=== PATIENT | female | born 1930 | race Caucasian/White ===

== ENCOUNTER 2016-09-13 17:26 | Inpatient (IN) | payer MEDICARE, OTHER ==
[~2016-09-13] VITALS: Ht 165.1 cm; Wt 69.5 kg
[~2016-09-13 17:26] MED LIST: AMIO200T PO; CARV25TA PO; CRES20T PO; FUR20 PO; LEVO88TA4 PO; LISI-571 PO; MAGN400C PO; NITR0.4T SL; WARF5TAB7 PO
--- NOTE | 2016-09-13 20:30 | NUR ---
Admit: Pt direct admit from [facility]; family at bedside. Tele placed, RA, vitals stable, afebrile. Pt placed on Neutropenic precautions. Admit complete, including home medication list which a list was provided by family and confirmed with patient. Patient pleasant and cooperative with care.
[2016-09-13 20:31] VITALS: PULSE 83
[2016-09-13 21:48] VITALS: BP 111/71; PULSE 83; RESP 18; O2SAT 97
--- NOTE | 2016-09-13 22:06 | PCM.HPMED ---
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 She was seen in the ED the day prior, where she was afebrile and was sent home with [facility]. She reports fever, chills, fatigue, and generalized weakness. She reports temperatures measured at home between 100.8 - 101 F. She denies cough, dyspnea, rhinorrhea, sinus congestion or other URI symptoms, N/V/D, chest pain, palpitations,or fainting. She was recently seen at [facility] 2 weeks ago for cardioversion for afib, where she was discovered to have AML; she was admitted for 5 days. At [facility], vitals included temp 98.1, HR 80, RR 14, BP 103/63, and O2 98 on room air. CXR at [facility] showed a density in the right apex, possibility of focal pneumonia, as well as a moderate hiatal hernia. CBC showed WBC 3, Hb 8.6, Hct 25.1, MCV 112.9, Plt 72. Absolute neutrophil count was 1500. CMP showed Na 134, K 4.1, Cl 97, CO2 25, BUN 31, Cr 1.9, glucose 107. Lactic acid was 1.9. LFTs were normal. Troponin I was normal at 0.017. Procalcitonin was 0.31. During her stay at [place], she converted back into afib. She was given Zosyn IV and APAP, blood cultures were drawn, and she was transferred to [facility]. PCP is Dr. Mckinley. Oncologist is Dr. Mayer in [place]. Pt is trying to establish with Dr. Salinas locally but has not yet set an appointment. Review of Systems: complete review of systems conducted and found negative except for the pertinent positives listed above. Allergies Coded Allergies: Sulfa (Sulfonamide Antibiotics) (Verified Allergy, Severe, Rash, 09/13/16) morphine (Verified Allergy, Mild, Nausea, 09/13/16) Home Medications Allopurinol 100 mg daily Amiodarone 200 mg daily Carvedilol 25 mg BID Hydralazine 25 mg q8h Isosorbide mononitrate 30 mg daily Levothyroxine 100 mcg daily Lisinopril 5 mg qhs PRN Magnesium oxide 400 mg daily Torsemide 20 mg BID Warfarin 2.5 mg daily PMH AML - not yet treated Atrial fibrillation s/p cardioversion Coronary artery disease, s/p 2 stents Hypothyroidism Hypertension Surgical History Angioplasty - 2 stents Bladder suspension Hysterectomy Family History Mother: [place] Father: [place] 2 brothers: [place] Social History Hx Alcohol Use: No Hx Substance Use: No Hx Tobacco Use: No Smoking Status: Never Smoker Exam Vital Signs Vital Sign - Last Date Time Temp Pulse Resp B/P Pulse Ox O2 Delivery O2 Flow Rate FiO2 09/13/16 21:48 37.3 83 18 111/71 97 Room Air Exam General: Alert, Oriented X3, Cooperative, No acute distress Head: Normocephalic, atraumatic. External ears normal. Eyes: PERRLA, EOMI. Anicteric sclerae. Mouth: Mouth normal, Mucous membranes moist/pink Neck: Neck supple with full range of motion. Chest& Lungs: Clear to auscultation bilaterally with no crackles, wheezes, or rhonchi. Cardiovascular: Regular rate/rhythm, Normal S1, Normal S2, No murmurs/rubs/ gallops Abdomen: Non-tender, Non-distended, No masses, Normoactive bowel tones, Soft Musculoskeletal: Normal range of motion Extremities: No cyanosis/clubbing/edema bilaterally Neurological: Mild bilateral hand tremor. 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 Neutropenic fever, acute. - Pt presents with fevers and chills in the context of neutropenia (ANC 1500) secondary to newly diagnosed AML. Likely secondary to HCAP - Neutropenic precautions in place - Tylenol PRN fever - Treat underlying HCAP - Consider oncology consult in AM Healthcare associated pneumonia, acute. - CXR showed density in the right apex (reviewed by admitting team). WBC was 3. - Cefepime 2g IV q8h - Linezolid 600 mg PO q12h - Consider Infectious Disease consult in AM - Nasal MRSA screen - Viral PCR ordered - Follow up on blood cultures from [facility], obtain records - Sputum cultures - Urine Legionella and Strep pneumo Acute kidney injury - Cr was 1.9 at [facility] (outside records reviewed). Possibly secondary to sepsis. - Obtain records from PCP for baseline Cr - NS @ 100 ml/hr - Avoid nephrotoxic agents - Monitor BMP Macrocytic anemia, unknown chronicity. - Hb 8.6, Hct 25.1, MCV 112.9. Likely secondary to pancytopenia from AML but will order B12 and folate levels to rule out deficiency. - B12 and folate ordered - Follow CBC Recurrent atrial fibrillation, acute. - Currently rate controlled. 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 Establishing with Dr. Salinas. No treatment yet. CODE STATUS: Pt requests Full Code for now, but states she wants to revisit her Code status in the morning, as she wanted to discuss it with her family. - Bowel regimen as needed - Antiemetic as needed Patient is admitted under inpatient status with expected length of stay greater than 2 midnights due to severity of presenting symptoms, risk of adverse event, and complexity of treatment plan. Resuscitation Status: CPR: Attempt Resuscitation Attending Statement The patient was seen and examined together with house staff on 09/13/2016 and I agree with the history, exam and plan as outlined in the note above. Harvinder Cesar Sep 13, 2016 22:06 Chelsey Mesa DO Sep 14, 2016 05:54
[2016-09-13] MEDS ORDERED: HYDR-3939 PO (22:25)
[2016-09-13] MEDS ORDERED: ISOS30TA4 PO (22:29)
[2016-09-13] MEDS ORDERED: TORS20TA3 PO (22:29)
[2016-09-13] MEDS ORDERED: UBIQ75CA PO (22:29)
[2016-09-13] MEDS ORDERED: ZYL100 PO (22:30)
[2016-09-13] MEDS ORDERED: Ondansetron 2 mg/mL 2 mL Inj IVPUSH PRN (23:00)
[2016-09-13] MEDS ORDERED: Polyethylene Glycol (PEG) 17 Gm Powder PO PRN (23:00)
[2016-09-13] MEDS ORDERED: Alum-Mag Hydrox-Simeth 30 mL Suspension PO PRN (23:00)
[2016-09-13 23:49] VITALS: BP 132/82; RESP 20; O2SAT 96
[2016-09-13 23:50] VITALS: BP 132/82; PULSE 100; O2SAT 84
[2016-09-13 23:55] VITALS: O2SAT 94
--- NOTE | 2016-09-13 23:55 | NUR ---
Respiratory Distress: Patients family notified nursing staff that pt was having difficulty breathing. RN assessed pt and found O2 84% on RA, pt working harder to breathe; 132/82, Afib HR 100, temp 38.3. Pt had been given PO Tylenol about 15 minutes prior to event. Pt was placed in a sitting position, 4L O2 NC placed on pt; pt's O2 went up to 94%; pt coached on breathing slowly in through nose, out through mouth. Pt did settle down and work of breathing declined but still not baseline. RN placed pt on cont pulse ox, was able to turn O2 down to 2L NC. Lights turned down, quite environment and pt fell asleep, breathing returned to baseline, O2 remains above 92%. MD made aware of event, no new orders. Sub Q Heparin being held as not to disturb pt at this time; pts platelets 72
[2016-09-14] VITALS (9 sets, daily range): BP systolic 97–134; BP diastolic 51–77; PULSE 78–96; RESP 16–21; O2SAT 90–98
[2016-09-14] MEDS: Heparin 5,000 Unit/mL Inj SUBQ SCH ×3 (00:30→17:00)
[2016-09-14] MEDS ORDERED: 0.9% Sodium Chloride 1,000 ML IV SCH (03:10)
[2016-09-14] MEDS ORDERED: Cefepime Inj 2,000 MG in Dextrose 5% Minibag Plus 100 ML IV ONE (04:00)
--- NOTE | 2016-09-14 05:01 | NUR ---
O2/NOC: RN kept pt on 2L O2 with cont pulse ox while pt sleeping; O2 sats stayed mid 90's, no s/s of respiratory distress. Denied all pain, febrile x1 during the night, afebrile this am. Pt slept off/on throughout the night, pleasant and cooperative with care. Family at bedside.
[2016-09-14 06:36] LABS: BASOPHILS % (AUTO) 0.5 % (0-3)
[2016-09-14 06:51] LABS: INR 1.27 ratio
[2016-09-14 07:29] LABS: EOSINOPHILS % (AUTO) 8.8 % (0-5); MONOCYTES % (AUTO) 8.8 % (4-12); Mean Corpuscular Hemoglobin 37.1 pg (27.0-35.0); Mean Corpuscular Volume 114.9 fL (81-100); NEUTROPHILS % (AUTO) 52.5 % (40-74); Platelet Count 62 bil/L (150-400)
[2016-09-14] MEDS: Isosorbide Mononitrate 30 mg ER24 Tablet PO SCH (08:39)
--- NOTE | 2016-09-14 09:14 | NUR ---
shaking pt complains of shaking and asks for Tylenol. pt states that she normally has the shakes but they are worse when she isn't feeling well.
[2016-09-14] MEDS ORDERED: Furosemide 10 mg/mL 2 mL Inj IVPUSH ONE (10:45)
--- NOTE | 2016-09-14 11:28 | NUR ---
Social Work-initial assessment: Data:See initial assessment. Pt is a 86 y/o female who was admitted on 09/13/16 for febrile neutropenia per H&P. Pt's insurance is [employer] and PCP is Jennifer Mckinley MD. EMR Reviewed. LUCY met with pt and two daughters Wicho and Kelechi at bedside, SW role explained. Pt is alert and oriented x3. Pt resides at home alone in [place] where she remains independent with ADLS. Pt does not drive and uses a cane at baseline. Pt has no HH or SNF history. Pt has no retirement care insurance or VA benefits. SW discussed DPOA/ advanced directive,pt and family confirm they are working on this. Family has questions about renting a hospital bed. LUCY called all DME providers and provided family with private quotes for rental of hospital bed. Per RN notes, pt has been up independent in her room. Pt's family confirms they will be providing transport home at discharge. LUCY provided phone number and plan on white board in room. SW will continue to follow. Assessment:Pt who is independent at baseline. Plan:Anticipate pt to return home with family support via POV. Information has been provided on cost of renting hospital bed. SW will continue to follow. RODOLFO Aldridge Addendum: 09/14/16 at 1135 by ALY LEAL Amended: Links added.
--- NOTE | 2016-09-14 11:55 | DRSVH ---
PROCEDURE: X-RAY CHEST ONE VIEW, PORTABLE ([id number]) INDICATIONS: 86 year-old female with shortness of breath. TECHNIQUE: One view of the chest was acquired. COMPARISON: None. FINDINGS: Surgical changes and devices: None. Lungs and pleura: No pleural effusions or pneumothorax. Lungs are clear. Mediastinum: There is large retrocardiac hiatal hernia, outlined by internal bowel gas. Heart size i s normal given AP technique. There is aortic atherosclerosis. Bones and chest wall: No suspicious bony lesions. Overlying soft tissues appear unremarkable. IMPRESSION: Large retrocardiac hiatal hernia. No acute cardiopulmonary disease. Dictated by: Enmanuel Salas M.D. on 09/14/2016 at 11:52 Approved by: Enmanuel Salas M.D. on 09/14/2016 at 11:53
[2016-09-14] MEDS: Cefepime Inj 1,000 MG in Dextrose 5% Minibag Plus 50 ML IV SCH (16:59)
[2016-09-14] MEDS ORDERED: Furosemide 10 mg/mL 2 mL Inj IVPUSH SCH (17:00)
--- NOTE | 2016-09-14 17:36 | PCM.PNMED ---
Subjective Date of Service Sep 14, 2016 Subjective Complains of worsening SOB. Exam Vital Signs Vital Sign - Last Date Time Temp Pulse Resp B/P Pulse Ox O2 Delivery O2 Flow Rate FiO2 09/14/16 13:17 89 09/14/16 10:53 Supplement Oxygen 09/14/16 10:06 37.0 16 134/77 90 2.50 Intake and Output 09/13/16 09/13/16 09/14/16 Cumulative From/Thru 14:59 22:59 06:59 09/13/16 21:48 - 09/14/16 06:03 Intake Total 200 ml 200 ml Output Total 470 ml 470 ml Balance -270 ml -270 ml Intake Oral 200 ml 200 ml Output Urine Total 470 ml 470 ml # Bowel Movements 0 0 General: Alert, Cooperative, Mild Distress Head: Normal Eyes: Scleral Anicteric Nose: Mucous Membr Moist/[place] Mouth: Mucous Membr Moist/[place] Neck: Supple Chest & Lungs: Chest Wall Normal, Other (mild bibasilar crackles) Cardiovascular: Regular Rate/Rhythm Pulses: NL carotid, radial, femoral, DP, PT Abdomen: Non-tender, Non-distended, Normoactive bowel tones, Soft Extremities: No cyanosis/clubbing/edma bilat Neurological: Grossly Neurologically Intact, Cranial Nerves 2-12 Intact, Normal Speech IVs and Medications Medications Reviewed: Medications were reviewed in detail Lab and Diagnostics Result Diagram: 09/14/1661809/14/16618 Assessment & Plan 86 year old female with 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 # Acute Neutropenic fever - Pt presents with fevers and chills in the context of neutropenia (ANC 1500) secondary to newly diagnosed AML. - Neutropenic precautions in place - Tylenol PRN fever - Oncology consulted today. Will followup with recommendations - Oncology doubts underlying pneumonia given repeat CXR is negative. Stop Abx tomorrow if continue to remain afebrile. 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 - Oncology (Dr. Salinas) consulted on 09/14. Input appreciated. Will followup - Tentative plan is further followup at the clinic in 2 days (this coming Monday ) # Acute on chronic Macrocytic anemia, present on admission - Likely secondary to pancytopenia from AML - Transfuse 2 units PRBC followed by 20mg IV Lasix after each unit of PRBC (per oncology recommendations) # Suspected acute Healthcare associated pneumonia, present on admission. Clinically seems less likely - CXR on 09/14: "No acute cardiopulmonary disease" - Cefepime 2g IV q8h - Linezolid 600 mg PO q12h - Consider Infectious Disease consult in AM - Followup pending cultures - If remain afebrile will stop Abx by tomorrow # Acute dyspnea, present on admission. Ongoing. - ? If 2ndry to acute systolic CHF (given prior history) or related to underlying severe mitral valave prolapse - IV Lasix 20mg x 1 given on 09/14 with apparent improved symptoms # Acute kidney injury. Improving - Cr was 1.9 at [facility] (outside records reviewed). - Followup after transfusion and additional Lasix # Recurrent atrial fibrillation, acute. - Currently rate controlled. - Continue home amiodarone and carvedilol - Monitor on telemetry - Continue warfarin - Discussed with her barrel washer (Dr. Tabor) on 09/14. No further recommendations for now # Hypertension, chronic - Continue home carvedilol, hydralazine, isosorbide mononitrate, lisinopril, torsemide # Hypothyroidism, chronic - Continue home levothyroxine # Coronary artery disease, chronic - Stable Dispo: 1-2 days VTE Mechanical Devices: Venous Foot Pump Resuscitation Status: CPR: Attempt Resuscitation Eric Taylor Sep 14, 2016 17:36 Code status in the morning, as she wanted to discuss it with her family. - Bowel regimen as needed - Antiemetic as needed Patient is admitted under inpatient status with expected length of stay greater than 2 midnights due to severity of presenting symptoms, risk of adverse event, and complexity of treatment plan. VTE Mechanical Devices: Venous Foot Pump Resuscitation Status: CPR: Attempt Resuscitation Eric Taylor Sep 14, 2016 17:36
--- NOTE | 2016-09-14 17:52 | CONS ---
[address] [address] CONSULTATION REPORT PATIENT: RK LOTT : 1930 MR#: [id number] ADMIT: 09/13/2016 JOB ID: [id number] CORRECTED REPORT: DATE: 09/14/2016 REFERRING PHYSICIAN: Eric Taylor MD REASON FOR CONSULTATION: Newly diagnosed AML. HISTORY OF PRESENT ILLNESS: The patient is a very pleasant 86-year-old female recently diagnosed with AML at [facility] while undergoing cardiac evaluation for cardioversion for atrial fibrillation. The patient subsequently underwent a bone marrow biopsy at [facility] on August 31, 2016. The pathology report not available to me at this time, however, flow cytometry from the aspirate confirming abnormal myeloid blast population representing 28.5% of the white cells. The patient subsequently completed her cardioversion for her atrial fibrillation back into sinus rhythm. She was subsequently seen by Dr. Loreta Mayer at the [facility] on September 08, 2016 regarding her treatment options. These included standard hypomethylating agents in the community setting versus clinical trials, the latter which was unlikely given her performance status, decreased ejection fraction as well as kidney function. The patient was subsequently scheduled for an outpatient consultation with me at [facility]. She, unfortunately, presented to [facility] on September 12, 2016 with symptoms of low-grade fever and chills. Initial blood work at [facility] and workup showing a temperature of 98.1, blood pressure 103/63. Chest x-ray, however, identifying a density in the right apex suggestive of focal pneumonia. CBC reporting a white cell count of 3, hemoglobin of 8.6, and a platelet count of 72 with an ANC of 1500. The patient was subsequently transferred to [facility] due to a bed shortage. During her stay, she returned back to atrial fibrillation, now requiring supplemental O2 and questionable CHF exacerbation. Clinically, she is feeling better today with resolution of her chills with the use of acetaminophen. She is not aware of any subjective fevers in the hospital. No cough, sore throat or diarrhea. REVIEW OF SYSTEMS: Over the past six months is significant for an approximate 10 pound weight loss with associated decreased appetite. She is not aware of any nighttime sweats and just recently experiencing the fevers and chills with her this hospital admission. She is currently in no pain. PAST MEDICAL HISTORY: Significant for: 1. AML with complex cytogenetics diagnosis confirmed from a bone marrow biopsy dated August 31, 2016. Based on her cytogenetics and molecular criteria, she falls into a poor risk category. She is on leukemia net risk stratification with a 10 year overall survival of approximately 12%. Treatment options are still being contemplated by the patient. 2. Coronary artery disease status post PCI to the LAD. 3. Atrial fibrillation, currently, on warfarin. 4. TIA. 5. Diverticulitis with hospitalization in May 2016. PAST SURGICAL HISTORY: Significant for hysterectomy. ALLERGIES: SULFA DRUGS. MEDICATIONS: Home include: 1. Allopurinol 100 mg daily. 2. Amiodarone 200 mg daily. 3. Carvedilol 25 mg q.12 h. 4. Hydralazine 25 mg q.8 h. 5. Levothyroxine 100 mcg daily. 6. Torsemide 20 mg b.i.d. 7. Warfarin 5 mg pills, 2-1/2 on Monday, , Monday; 5 mg all other days. SOCIAL HISTORY: Patient lives in [place] with excellent family support. She has five children. She denies any smoking or alcohol use. FAMILY HISTORY: Negative for any blood disorders, both parents dying from cardiac complications, and two brothers from coronary artery disease. PHYSICAL EXAMINATION: Vital signs today reporting a weight of 69.9 kg, a blood pressure of 134/77, a temperature of 37, a pulse of 96, a respiratory rate 16 and she is saturating at 90% on 2.5 L of supplemental oxygen. She is A and O x3. In good spirits overall. She did not appear cachectic or septic. Affect was appropriate. She was not confused. LABORATORY DATA: From September 06, 2016 showing a white cell count of 2, hemoglobin of 7.2, platelet count of 62. Sodium 136, potassium 3.7, serum creatinine 1.68, calcium 8.1, AST 27, ALT 22, alk phos 50, albumin 3.2, procalcitonin was 0.7. Respiratory virus PCR from nasopharyngeal swab was all normal. Repeat plain film of the chest on September 06, 2016 reporting no evidence of lung parenchymal changes, right and left heart was clear. 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 The patient's ECOG performance status currently is 2-3 based on her cardiac complications. In addition, she has significant adverse prognostic markers for her AML including age of 86, complex cytogenetics, specifically poor risk classification by and April 2016 criteria. Discussion regarding treatment options was further detailed with the patient. At this time, she has informed me that she is not interested in going down to [place] for clinical trial. The patient would therefore likely be a candidate for hypomethylating agents, specifically azacitidine given subcutaneously x7 of a 28-day cycle. Benefits include an approximate 6-10 month overall survival. Side effects including fatigue, cytopenias and abdominal discomfort were discussed with the patient and an information sheet was provided to her today. RECOMMENDATIONS: For the patient at this time are to transfuse 2 units of packed red blood cells, stabilize her cardiac function followed by discharge from the hospital if she is cleared of fever over the next 24 hours on Levaquin. She will be scheduled to see me at [facility] on September 23, 2016. She otherwise had no further questions. I would like to thank Dr. Taylor very much for the kind consultation. Corrected by CELINA 09/23/16 at 7:36am Report type.
[2016-09-14] MEDS ORDERED: 0.9% Sodium Chloride 250 ML ONE (21:43)
[2016-09-15] VITALS (11 sets, daily range): BP systolic 95–160; BP diastolic 69–103; PULSE 67–120; RESP 16–26; O2SAT 91–96
[2016-09-15] MEDS ORDERED: diphenhydrAMINE 25 mg Capsule PO PRN (00:20)
[2016-09-15] MEDS: Heparin 5,000 Unit/mL Inj SUBQ SCH ×5 (00:30→17:08)
[2016-09-15] MEDS: Furosemide 10 mg/mL 2 mL Inj IVPUSH PRN ×2 (03:21→07:44)
[2016-09-15 06:06] LABS: BASOPHILS % (AUTO) 0.4 % (0-3); EOSINOPHILS % (AUTO) 8.9 % (0-5); MONOCYTES % (AUTO) 8.9 % (4-12); Mean Corpuscular Hemoglobin 36.3 pg (27.0-35.0); Mean Corpuscular Volume 108.4 fL (81-100); NEUTROPHILS % (AUTO) 50.4 % (40-74); Platelet Count 51 bil/L (150-400)
[2016-09-15 06:30] LABS: Magnesium 1.9 mg/dL (1.6-2.6)
[2016-09-15 06:37] LABS: INR 1.23 ratio
[2016-09-15] MEDS: Cefepime Inj 1,000 MG in Dextrose 5% Minibag Plus 50 ML IV SCH ×2 (07:44→15:39)
--- NOTE | 2016-09-15 07:50 | NUR ---
Blood transfusion Patient anxious over blood transfusion. shaking prior to starting infusion. vital stable afebrile. 15 minute vital check WNL. 1 hour later patient called reported feeling warm. her face was red and flushed small red spot on neck. no other redness. patient denies itching or pain. vitals remain WNL. Room temp 74 patient was given warm blanket prior to complaining of total body warmth. room temperature decreased, warm blanket removed. paged continue blood give benadryl 25mg PO. patient was given benadryl redness to face decreased. CPOX in place. Patient tolerated second unit of blood with no issues vitals stable.
[2016-09-15] MEDS: Isosorbide Mononitrate 30 mg ER24 Tablet PO SCH (07:55)
[2016-09-15] MEDS ORDERED: Potassium Chloride 20 mEq SR Tablet PO ONE (08:35)
--- NOTE | 2016-09-15 12:07 | PCM.PHAPRO ---
Progress Fever Date Sep 15 INR 1.27 1.23 INR change -0.04 Warf Dose 2.5MG 3 Sean Moreno Pharm.D Sep 15, 2016 12:07
--- NOTE | 2016-09-15 16:53 | PCM.PNMED ---
Subjective Date of Service Sep 15, 2016 Subjective Denies any new issues/complaints Exam Vital Signs Vital Sign - Last Date Time Temp Pulse Resp B/P Pulse Ox O2 Delivery O2 Flow Rate FiO2 09/15/16 12:20 36.8 94 18 106/69 95 Room Air 09/14/16 18:01 2.50 Intake and Output 09/14/16 09/14/16 09/15/16 Cumulative From/Thru 14:59 22:59 06:59 09/13/16 21:48 - 09/15/16 06:40 Intake Total 663 ml 700 ml 450 ml 2013 ml Output Total 350 ml 400 ml 1220 ml Balance 663 ml 350 ml 50 ml 793 ml Intake Oral 700 ml 150 ml 1050 ml IV Total 663 ml 663 ml Packed Cells 300 ml 300 ml Output Urine Total 350 ml 400 ml 1220 ml # Bowel Movements 2 2 Exam Denies any new issues/complaints IVs and Medications Medications Reviewed: Medications were reviewed in detail Lab and Diagnostics Result Diagram: 09/15/16 0550 09/15/16 0550 Assessment & Plan 86 year old female with 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 # Acute Neutropenic fever - Pt presents with fevers and chills in the context of neutropenia secondary to newly diagnosed AML. - Neutropenic precautions in place - Appreciate Oncology consult. Will followup with recommendations - Oncology doubts underlying pneumonia given repeat CXR is negative. - ID consulted today. 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 - Oncology (Dr. Salinas) consulted on 09/14. Input appreciated. Will followup - Tentative plan is further followup at the clinic in one week (next Monday) # Acute on chronic Macrocytic anemia, present on admission - Likely secondary to pancytopenia from AML - Post 2 units PRBC transfusion followed by 20mg IV Lasix after each unit of PRBC (per oncology recommendations) on 09/14/16 # Suspected acute Healthcare associated pneumonia, present on admission. Clinically seems less likely - CXR on 09/14: "No acute cardiopulmonary disease" - Cefepime 2g IV q8h - Linezolid 600 mg PO q12h - ID consult as noted above # Acute dyspnea, present on admission. Ongoing. - ? If 2ndry to acute systolic CHF (given prior history) or related to underlying severe mitral valave prolapse - IV Lasix 20mg x 1 given on 09/14 with apparent improved symptoms # Acute kidney injury. Improving - Cr was 1.9 at [facility] (outside records reviewed). - Followup # Acute hypokalemia. Not present on admission - Replete and followup # Chronic atrial fibrillation, present on admission. Ongoing - Currently rate controlled. - Continue home Amiodarone and Carvedilol - Monitor on telemetry - Discussed with her tubing supervisor (Dr. Tabor) on 09/14. No further recommendations for now # Anticoagulation with Warfarin. Sub-therapeutic INR on admission, ongoing - Continue Warfarin (pharmacy to adjust) - Followup daily INR # Hypertension, chronic - Continue home carvedilol, hydralazine, isosorbide mononitrate, lisinopril, torsemide # Hypothyroidism, chronic - Continue home levothyroxine # Coronary artery disease, chronic - Stable Dispo: 1-2 days VTE Mechanical Devices: Venous Foot Pump Resuscitation Status: CPR: Attempt Resuscitation Eric Taylor Sep 15, 2016 16:53
--- NOTE | 2016-09-15 18:09 | NUR ---
Afib/Aflutter Tele reports pt with afib (rate 92) and irregular Aflutter. MD notified. Pt asymptomatic. Will continue to monitor.
--- NOTE | 2016-09-15 20:07 | CONS ---
[address] [address] CONSULTATION REPORT PATIENT: RK LOTT : 1930 MR#: [id number] ADMIT: 09/13/2016 JOB ID: [id number] DATE OF SERVICE: 09/15/2016 INFECTIOUS DISEASE CONSULTATION: I thank Dr. Taylor for this timely consult. REASON FOR CONSULTATION: Neutropenic host with low-grade fever. HISTORY OF PRESENT ILLNESS: The patient is an 86-year-old woman who was down at the [facility] earlier this month being evaluated for cardioversion because of persistent AFIB. 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 She apparently received a single course of platelets when she was there and then left and came back up to her home near [place] with the plan to get situated for chemotherapy through our [facility]. The patient subsequently, however, while at home in [place], developed some low-grade fevers. She had been warned about the hazards of fever in the presence of leukemia and so was evaluated and admitted to [facility]. This admission was approximately two days ago and she was subsequently transferred to this facility. It is unclear to me, despite talking to the patient and her daughters, which came first, her subsequent platelet transfusions in [place] or her fevers, but it sounds as if she may have received additional platelets and then developed a low-grade fever. At that point she was cultured and placed on Levaquin and had additional low-grade fevers and was admitted and subsequently transferred here. These fevers that led to her admission were just above 38 degrees. The initial evaluation at [facility] showed what they described as a focal infiltrate in the right apex and for that reason they thought it was likely the patient had pneumonia. Her white count then was about 3000, and about half of that was neutrophils, but they thought this represented relative neutropenia in association with the fever, so she was transferred to this facility because of a bed shortage at [place] and has been here over the past couple of days. The patient reports that since her admission through [place] and subsequent transfer here due to the lack of beds at [place] she has been taking Tylenol and her fevers that she had had in the day prior to admission, as well as some low-level chills she had, have resolved. She currently has little in the way of focal complaints. This evening the patient tells me she has no significant headache and no visual change. She denies any sore throat. She has no cough or chest pain whatsoever. She has had on occasion a couple of loose stools over the past few days, but not much to speak of. She denies nausea or vomiting. She has not had any urinary symptoms. PAST MEDICAL HISTORY: 1. AML diagnosed two weeks ago at the [facility]. 2. Organic heart disease. a. Coronary artery disease. b. Atrial fibrillation. 3. TIA history. 4. History of diverticulitis May 2016. ALLERGIES: THE PATIENT REPORTS THAT SHE HAS SULFA ALLERGY. SOCIAL HISTORY: The patient is a nondrinker and nonsmoker, who lives in [place]. FAMILY HISTORY: Negative for tuberculosis in first- or second-degree relatives. REVIEW OF SYSTEMS: The patient has no significant headache and no visual change. She notes her vision is gradually declining through the years but not acutely worse. No sinus pain. No sore throat. No significant cough or pleuritic chest pain. No sputum production. No swollen lymph nodes she is aware of. Occasional loose stools. No nausea or vomiting. No dysuria or urgency. No swelling of any joints and no focal new neurologic findings. Remainder of the review of systems is negative. PHYSICAL EXAMINATION: Reveals an afebrile woman temp 36.7, pulse 92, respiratory rate 18, blood pressure 111/71. She is saturating 96% on room air and she is in no distress at all. The patient is alert and oriented x3 and able to give a good history. Her head is without evidence of trauma. There is no temporal wasting. Her conjunctivae are quite pale, consistent with her anemia. Otherwise no conjunctival or scleral abnormalities. The oral cavity is without thrush or hairy leukoplakia. The neck is without adenopathy and reasonably supple for her age. Lungs quite clear posteriorly. Cardiac tones right now regular rate and rhythm, so she is clearly back out of AFIB. No significant murmur or rub is appreciated. The abdomen is soft and without tenderness or obvious organomegaly. She does not have a Esteves catheter. There is no suprapubic tenderness. No evidence of synovitis is seen. No skin rash. No significant peripheral edema, though there is not even 1+ edema about the right ankle; it is very subtle. No evidence of cellulitis. The patient is able to ambulate. No focal neuro findings. LABORATORIES: Include white count 2500, platelet count 51,000. 25. Creatinine is 1.6. Liver function tests basically normal. Procalcitonin 0.37. INR 1.23. Urine Legionella and pneumococcal antigens are negative. A MRSA screen of the nares is negative. Respiratory viral PCR panel has been done and is also negative. The chest x-ray done here was reviewed. It shows basically clear lung jones. There is a large hiatal hernia. 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 She has not yet started any chemo and that is planned for the near future per Dr. Salinas of the [facility] oncology group. She was seen earlier in the week and on two occasions at [facility] and blood cultures were done at both those. At the first episode she was sent home on Levaquin which she took for a day or so and then came back with additional low-grade fever and chills. Since admission here she has been afebrile, but she has been taking Tylenol which she reports quiets the fevers and chills. The only temperature we have here that is above normal is at 38.3 when she was first seen on the evening of the and since then she has been completely afebrile. At this point it is unclear to me whether or not she has any infection or not. It is certainly possible that the fever she had on the evening of the and may have been related to platelet transfusion she had been receiving in [place] but I do not have enough records from the [facility] to exactly discern which came first, the platelets or the low-grade fevers. In any event, she has been completely afebrile here, even though she has been started on linezolid and cefepime for possible neutropenic fevers with pneumonia. At this point the patient is neither febrile nor neutropenic. Her neutrophil count is between a 1000 and 1500 on each of the measurements that I have available and she has not had any fever since that evening of the . At this point I think it is imperative that we drop linezolid because it can be especially problematic in people with pre-existing thrombocytopenias such as this patient. We can maintain her on cefepime overnight perhaps while we wait for additional data. RECOMMENDATIONS: 1. DC linezolid. 2. Will continue with cefepime overnight. 3. A procalcitonin will be checked in the morning. 4. I called and spent time on hold but was unable to find the blood culture results from [facility]. I have asked our community support worker to try and obtain the blood culture results from the and , which I assume are negative, but it will be important to confirm that before we discharge her. 5. It is possible we could discharge the patient on oral Levaquin, or perhaps even on no antibiotics tomorrow if she looks this stable. Thank you very much.
--- NOTE | 2016-09-15 21:58 | NUR ---
Acute SOB, tachycardia Pt c/o sudden onset of SOB and HR seen up to 140s. Pt denies other symptoms, states to experience SOB and nausea only. paged x3. Verbal orders recd for CXR, BNP, 40mg IV lasix. Daughter at bedside concerned about pt c/o body tremors about q6hrs. Afebrile. sx resolved with Tylenol. Pt asks for tylenol before it's due, explained we can't and SOB increases. Close monitoring provided. Addendum: 09/15/16 at 2214 by OPAL AGUIAR RN 4mg IV zofran given per pts request. Pt states nausea has subsided some from initial start to administration of Zofran.
[2016-09-15] MEDS ORDERED: Furosemide 10 mg/mL 4 mL Inj IVPUSH ONE (22:05)
[2016-09-16 01:02] VITALS: BP 101/66; PULSE 97; RESP 16; O2SAT 97
[2016-09-16] MEDS: Cefepime Inj 1,000 MG in Dextrose 5% Minibag Plus 50 ML IV SCH (04:14)
[2016-09-16] MEDS ORDERED: 0.9% Sodium Chloride 250 ML ONE (04:16)
[2016-09-16 05:10] VITALS: BP 116/71; PULSE 89; RESP 16; O2SAT 98
[2016-09-16 05:43] VITALS: PULSE 76
--- NOTE | 2016-09-16 06:18 | NUR ---
Activity Pt up to BSC and bathroom this shift for voiding. Pt steady on her feet. HR in the 90's. No c/o of shortness of breath. Breath sounds crackles in bases. Pt voided total 350 urine this shift. Pt's daughter in room. Call light within reach, frequent rounding. Paged with lab results this shift, no further orders.
[2016-09-16] MEDS: Heparin 5,000 Unit/mL Inj SUBQ SCH (07:02)
[2016-09-16 07:33] LABS: INR 1.33 ratio
[2016-09-16 07:52] LABS: BASOPHILS % (AUTO) 0.4 % (0-3); EOSINOPHILS % (AUTO) 0 % (0-5); MONOCYTES % (AUTO) 9.8 % (4-12); Mean Corpuscular Hemoglobin 35.9 pg (27.0-35.0); Mean Corpuscular Volume 106.2 fL (81-100); Platelet Count 45 bil/L (150-400)
[2016-09-16 08:00] VITALS: PULSE 81
[2016-09-16] MEDS: Isosorbide Mononitrate 30 mg ER24 Tablet PO SCH (08:06)
--- NOTE | 2016-09-16 08:38 | DRSVH ---
PROCEDURE: X-RAY CHEST ONE VIEW, PORTABLE ([id number]) INDICATIONS: CHF/SHORT OF BREATH TECHNIQUE: One view of the chest was acquired. COMPARISON: [facility], CR, XR CHEST 1VW (PORTABLE), 09/14/2016, 11:20. FINDINGS: Surgical changes and devices: None. Lungs and pleura: No pneumothorax. No definite pleural effusion. Interval development of right upper lobe consolidation. Hiatal hernia as before. Patchy retrocardiac opacities probably atelectasis/aspir ation unchanged. Mediastinum: Cardiac silhouette and mediastinal contours are stable. Bones and chest wall: No suspicious bony lesions. Overlying soft tissues appear unremarkable. Late ral curvature of the spine IMPRESSION: Interval worsening of right upper lobe consolidation since yesterday potential aspiration/atelectasis versus developing pneumonia. Please correlate clinically. Dictated by: Kelechi Sebastian M.D. on 09/16/2016 at 8:34 Approved by: Kelechi Sebastian M.D. on 09/16/2016 at 8:37
[2016-09-16 09:45] VITALS: BP 93/58; PULSE 78; RESP 18; O2SAT 97
[2016-09-16] MEDS ORDERED: AMOX-366 PO (12:44)
--- NOTE | 2016-09-16 12:44 | PCM.DIMED ---
Discharge Instructions Date of Service Sep 16, 2016 Dates of Hospitalization Sep 13, 2016 at 20:48 Discharge Diagnosis Discharge Diagnosis # Acute Neutropenic fever, present on admission. Resolved. # Acute myelogenous leukemia, ongoing # Acute on chronic macrocytic anemia, present on admission - Likely secondary to pancytopenia from AML - Post 2 units PRBC transfusion on 09/14/16 # Suspected acute community acquired pneumonia, present on admission. # Acute dyspnea, present on admission unclear exact etiology but possibly due to acute systolic congestive heart failure / flash pulmonary edema due to underlying severe mitral valave prolapse # Acute kidney injury. Improving - Will need further followup with primary care provider to ensure continued improvement and stability. # Chronic atrial fibrillation, present on admission. Ongoing # Anticoagulation with Warfarin. Sub-therapeutic INR on admission and ongoing - INR 1.33 by day of discharge # Acute hypokalemia. Not present on admission. Resolved. # Hypertension, chronic. Stable. # Hypothyroidism, chronic. Presumed stable. # Coronary artery disease, chronic. Stable. Diet Discharge Diet: Low fat, Low Sodium, Heart Healthy Activity Discharge Activity: No restrictions Call your provider Call your provider for: Fever or Chills, Shortness of breath, Bleeding, Chest pain Patient Instructions Patient Instructions Seek immediate medical attention if any new or worsening signs or symptoms occur. Follow-up plan 1. Followup with primary care provider in 3-4 days and to recheck INR and adjust Warfarin dose as needed. 2. Followup with oncology (Dr. Salinas) within one week. Call to verify exact date and appointment time. Follow-up Provider: Jennifer Mckinley MD Provider: Tan Salinas Masoud Sep 16, 2016 12:43
--- NOTE | 2016-09-16 12:45 | PROG NOTE ---
[address] [address] PROGRESS NOTE PATIENT: RK LOTT : 1930 MR#: [id number] ADMIT: 09/13/2016 JOB ID: [id number] DATE: 09/16/2016 INFECTIOUS DISEASE FOLLOWUP NOTE: REASON FOR FOLLOWUP: Modest neutropenia with a pulmonary infiltrate and congestive heart failure in a patient who recently underwent cardioversion for AFIB and who was recently found to have AML which has not yet been treated. INTERVAL HISTORY: Overnight the patient had an episode of significant shortness of breath which was alleviated with oxygen and diuretics. This morning she feels back to her respiratory baseline. She is not short of breath this morning. Has no significant cough, fevers, or chills. No nausea, vomiting, diarrhea. PHYSICAL EXAMINATION: Reveals an afebrile woman who is in no acute distress. She is sitting up and asking many questions. Recall that she was febrile on the first day of her admission September 13 and since then has been afebrile, now 36.3, pulse 78, respiratory rate 18, blood pressure 93/58. She is sitting up, breathing room air, and is very comfortable. Mental status is clear. Oral cavity negative. Lungs: A few crackles both bases posteriorly. Nothing heard in the right upper lobe. Cardiac tones: Irregular rate and rhythm today. Abdomen: Benign. No skin rash. Minimal peripheral edema. LABORATORIES: Include white count 2300 stable, platelets 45,000 more less stable. The patient has almost 1500 neutrophils so she is in no way neutropenic. Creatinine 1.82, creatinine clearance 38. Procalcitonin has bumped a bit from 0.37 to 1.13. Her Legionella and pneumococcal urine antigens are negative. Respiratory viral PCR negative. MRSA screen negative. IMAGING PROCEDURE: A chest x-ray today was compared to one done two days ago, and I have reviewed the films myself. There does appear to be a little more infiltrate in the right upper lobe which could be consistent with atelectasis, aspiration, or pneumonia as the usual differential. The blood cultures from [place], I was told orally by the ward aide last night, were negative but I do not see any written confirmation. IMPRESSION: This is a complicated case of a woman just recently diagnosed with acute myeloid leukemia that has not yet been treated. She has pancytopenia, not surprisingly. In addition, she has some coronary artery disease, atrial fibrillation (AFIB), and probably some congestive heart failure as evidenced by what sounds like pulmonary edema last night and a BNP of 25,000. Her chest x-ray was initially very clear when she was admitted here and now has some subtle right upper lobe infiltrate as well as some vascular congestion at the bases. Initially when I saw the patient last night I did not think she had any infection as her procalcitonin was below 0.5 and she had a clear radiograph with no fever. Today she has a procalcitonin just above 1 and her chest x-ray shows a bit of a right upper lobe infiltrate which could be a brewing pneumonia. Nonetheless she looks completely nontoxic and is eager to leave the hospital. I think this is reasonable. It seems reasonable to provide her some oral antibiotics to cover the possibility of a community-acquired type pneumonia. Because the patient's QT interval here is 0.55, I think we should avoid antibiotics such as quinolones or macrolides, which can further prolong the QT interval and this could be hazardous. RECOMMENDATIONS: 1. Continue cefepime as long as she is here, though I think she will be leaving later today. 2. Will send the patient out on oral antibiotics and I would recommend that we use Augmentin as our oral antibiotic of choice in this situation at 875 p.o. b.i.d. for about seven days. 3. The patient will be seeing Dr. Salinas in followup next week and at that time she will be deciding whether or not she wishes to start chemotherapy for her AML. 4. Also note that last night when I examined her she clearly had a regular rhythm, and now it is irregular, so I wonder if some of her shortness of breath issues are related to intermittent AFIB. 5. This case discussed in detail with Dr. Taylor. Thank you very much.
[2016-09-16 13:17] VITALS: BP 115/72; PULSE 85; RESP 18; O2SAT 98
--- NOTE | 2016-09-16 13:33 | NUR ---
Social Work: Discharge Data: Pt is on day 3 of hospitalization, EMR reviewed. Pt discussed in rounds. D/C orders are in. states no d/c planning needs. HAND COOPER HELPER will continue to follow if needs arise. Assessment: Pt who is independent at baseline. Plan: Pt will d/c home via POV today. states no d/c planning needs. HAND COOPER HELPER will continue to follow if needs arise. RODOLFO Rose
[2016-09-16] MEDS ORDERED: NITR0.4T SL (13:40)
--- NOTE | 2016-09-16 14:01 | NUR ---
Discharge Pt d/c home at 1357 with 2 daughters via wc by primary RN. D/c teaching provided with daughters present per pts request. New Rx for po abx and Nitro recd. Education provided. Pt encouraged to f/u with INR clinic within a few days. 1x dose of 4mg Warfarin administered prior to discharge. Pt denied pain. VSS. All personal belongings left with pt.
--- NOTE | 2016-09-16 15:54 | NUR ---
HARPREET Signed @ 3020YM
--- NOTE | 2016-09-16 18:38 | PCM.DC.MED ---
Discharge Summary Date of Service Sep 16, 2016 Dates of Hospitalization Date of Hospital Admission Sep 13, 2016 at 20:48 Date of Discharge: Sep 16, 2016 Providers: Admitting Physician: Eric Burleson Primary Care Physician: Jennifer Mckinley MD Attending Physician: Eric Burleson Diagnosis at Time of Discharge Diagnosis at Time of Discharge # Acute Neutropenic fever, present on admission. Resolved. # Acute myelogenous leukemia, ongoing # Acute on chronic macrocytic anemia, present on admission - Likely secondary to pancytopenia from AML - Post 2 units PRBC transfusion on 09/14/16 # Suspected acute community acquired pneumonia, present on admission. # Acute dyspnea, present on admission unclear exact etiology but possibly due to acute systolic congestive heart failure / flash pulmonary edema due to underlying severe mitral valave prolapse # Acute kidney injury. Improving - Will need further followup with primary care provider to ensure continued improvement and stability. # Chronic atrial fibrillation, present on admission. Ongoing # Anticoagulation with Warfarin. Sub-therapeutic INR on admission and ongoing - INR 1.33 by day of discharge # Acute hypokalemia. Not present on admission. Resolved. # Hypertension, chronic. Stable. # Hypothyroidism, chronic. Presumed stable. # Coronary artery disease, chronic. Stable. Consultations 1. ID 2. Oncology Procedures XRay, CTs & MRIs Date of Service: 09/14/16 1043 PROCEDURE: X-RAY CHEST ONE VIEW, PORTABLE ([id number]) IMPRESSION: Large retrocardiac hiatal hernia. No acute cardiopulmonary disease. Dictated by: Enmanuel Salas M.D. on 09/14/2016 at 11:52 Approved by: Enmanuel Salas M.D. on 09/14/2016 at 11:53 Date of Service: 09/15/16 2200 PROCEDURE: X-RAY CHEST ONE VIEW, PORTABLE ([id number]) IMPRESSION: Interval worsening of right upper lobe consolidation since yesterday potential aspiration/atelectasis versus developing pneumonia. Please correlate clinically. Dictated by: Kelechi Sebastian M.D. on 09/16/2016 at 8:34 Approved by: Kelechi Sebastian M.D. on 09/16/2016 at 8:37 Brief History As noted in H&P by Dr. Cesar: Patient is an 86 year old female with history of newly diagnosed AML (not yet treated), atrial fibrillation s/p cardioversion, CAD with 2 stents, HTN, and hypothyroidism who presented to [facility] with fever and malaise ongoing for 3 days. She was seen in the ED the day prior, where she was afebrile and was sent home with Levaquin. She reports fever, chills, fatigue, and generalized weakness. She reports temperatures measured at home between 100.8 - 101 F. She denies cough, dyspnea, rhinorrhea, sinus congestion or other URI symptoms, N/V/D, chest pain, palpitations,or fainting. She was recently seen at [facility] 2 weeks ago for cardioversion for afib, where she was discovered to have AML; she was admitted for 5 days. At [facility], vitals included temp 98.1, HR 80, RR 14, BP 103/63, and O2 98 on room air. CXR at [facility] showed a density in the right apex, possibility of focal pneumonia, as well as a moderate hiatal hernia. CBC showed WBC 3, Hb 8.6, Hct 25.1, MCV 112.9, Plt 72. Absolute neutrophil count was 1500. CMP showed Na 134, K 4.1, Cl 97, CO2 25, BUN 31, Cr 1.9, glucose 107. Lactic acid was 1.9. LFTs were normal. Troponin I was normal at 0.017. Procalcitonin was 0.31. During her stay at [place], she converted back into afib. She was given Zosyn IV and APAP, blood cultures were drawn, and she was transferred to [facility]. PCP is Dr. Mckinley. Oncologist is Dr. Mayer in [place]. Pt is trying to establish with Dr. Salinas locally but has not yet set an appointment. Hospital Course # Acute Neutropenic fever - Pt presents with fevers and chills in the context of neutropenia secondary to newly diagnosed AML. - Neutropenic precautions were in place - ID and oncology were consulted - Per ID and oncology recs patient is being discharged home with continued oral Abx (as noted below). Levofloxacin avoided due to increase in QT interval # Acute myelogenous leukemia - New diagnosis 2 weeks ago. - Oncology (Dr. Salinas) consulted on 09/14. Input appreciated. Will followup - Tentative plan is further followup at the clinic in one week # Acute on chronic Macrocytic anemia, present on admission - Likely secondary to pancytopenia from AML - Post 2 units PRBC transfusion followed by 20mg IV Lasix after each unit of PRBC (per oncology recommendations) on 09/14/16 # Suspected acute Healthcare associated pneumonia, present on admission. - Cefepime 2g IV q8h - Linezolid 600 mg PO q12h - ID consult as noted above and patient will go home on Augmentin # Acute dyspnea, present on admission. Resolved - ? If 2ndry to acute systolic CHF (given prior history) or related to underlying severe mitral valave prolapse - IV Lasix 20mg x 1 given on 09/14 with improved symptoms # Acute kidney injury. Improving - Cr was 1.9 at [facility] (outside records reviewed). - Followup as outpatient # Acute hypokalemia. Not present on admission - Replete and resolved # Chronic atrial fibrillation, present on admission. Ongoing - Currently rate controlled. - Continue home Amiodarone and Carvedilol - Discussed with her customs compliance director (Dr. Tabor) on 09/14. No further recommendations for now # Anticoagulation with Warfarin. Sub-therapeutic INR on admission, ongoing - Continue Warfarin - Followup INR as outpatient in 2-3 days # Hypertension, chronic - Continue home carvedilol, hydralazine, isosorbide mononitrate, lisinopril, torsemide # Hypothyroidism, chronic - Continue home levothyroxine # Coronary artery disease, chronic - Stable Exam Vital Signs (Last) Date Time Temp Pulse Resp B/P Pulse Ox O2 Delivery O2 Flow Rate FiO2 09/16/16 13:17 36.6 85 18 115/72 98 Room Air 09/16/16 05:10 1.00 Exam General: Alert, Cooperative, Mild Distress Head: Normal Eyes: Scleral Anicteric Nose: Mucous Membr Moist/[place] Mouth: Mucous Membr Moist/[place] Neck: Supple Chest & Lungs: Chest Wall Normal, CTA bilat Cardiovascular: Regular Rate/Rhythm Abdomen: Non-tender, Non-distended, Normoactive bowel tones, Soft Extremities: No cyanosis/clubbing/edema bilat Neurological: Grossly Neurologically Intact, Cranial Nerves 2-12 Intact, Normal Speech Test 09/14/16 06:19 09/14/16 09:10 09/15/16 05:50 09/15/16 22:25 Total Bilirubin 0.5mg/dL (0.0-1.2) Aspartate Amino Transf (AST/SGOT) 27U/L (0-50) Alanine Aminotransferase (ALT/SGPT) 22U/L (0-32) Alkaline Phosphatase 50U/L (25-165) Total Protein 6.5g/dL (6.4-8.4) Albumin 3.2g/dL (3.4-5.0) Urine Legionella pneumophilia Ag Negative (Negative) Activated Partial Thromboplast Time 37.5sec (22.8-33.0) Magnesium Level 1.9mg/dL (1.6-2.6) Pro-B-Type Natriuretic Peptide 13321cs/mL (0-738) Test 09/16/16 07:05 White Blood Count 2.3th/mm3 (3.8-10.1) Red Blood Count 2.59mil/mm3 (3.90-5.20) Hemoglobin 9.3g/dL (12.0-15.6) Hematocrit 27.5% (35.0-46.0) Mean Corpuscular Volume 106.2fL (81-100) Mean Corpuscular Hemoglobin 35.9pg (27.0-35.0) Mean Corpuscular Hemoglobin Concent 33.8% (32.0-37.0) Red Cell Distribution Width 22.4% (12.3-15.4) Platelet Count 45bil/L (150-400) Neutrophils (%) (Auto) 56.0% (40-74) Lymphocytes (%) (Auto) 33.8% (14-46) Monocytes (%) (Auto) 9.8% (4-12) Eosinophils (%) (Auto) 0% (0-5) Basophils (%) (Auto) 0.4% (0-3) Prothrombin Time 14.3sec (8.1-12.5) Prothromb Time International Ratio 1.33ratio Sodium Level 135mEq/L (134-144) Potassium Level 3.6mEq/L (3.5-5.2) Chloride Level 99mEq/L (97-108) Carbon Dioxide Level 20mmol/L (18-29) Blood Urea Nitrogen 35mg/dL (8-27) Creatinine 1.82mg/dL (0.57-1.00) Estimat Glomerular Filtration Rate 38mL/min (>59) Glucose Level 121mg/dL (60-99) Calcium Level 8.2mg/dL (8.5-10.1) Procalcitonin 1.13ng/mL (0.00-0.08) Discharge Medications Discharge Medications Allopurinol (Allopurinol) 100 Mg Tablet 100 MG PO DAILY (Reported) Amiodarone (Amiodarone) 200 Mg Tablet 200 MG PO DAILY (Reported) Amoxicillin/Clav K 875-125 mg (Augmentin 875-125 mg) 1 Each Tablet 1 TABLET PO BID Prescribed by: ERIC BURLESON MD Carvedilol (Coreg) 25 Mg Tablet 25 MG PO BID (Reported) Hydralazine (Hydralazine) 25 Mg Tablet 25 MG PO TID (Reported) Isosorbide MN ER (Isosorbide MN ER) 30 Mg Tab.er.24h 30 MG PO DAILY (Reported) Levothyroxine (Levothyroxine) 88 Mcg Tablet 100 MCG PO DAILY (Reported) Magnesium Oxide (Magnesium) 400 Mg Capsule 400 MG PO DAILY (Reported) Torsemide (Torsemide) 20 Mg Tablet 20 MG PO BID (Reported) Ubiquinone (Ultra Coq10) 75 Mg Capsule 300 MG PO DAILY (Reported) Warfarin Sodium (Warfarin Sodium) 5 Mg Tablet 2.5 MG PO DAILY (Reported) As needed Nitroglycerin SL (Nitrostat) 0.4 Mg Tab.subl 0.4 MG SL Q5MIN PRN PRN For Chest Pain Prescribed by: ERIC BURLESON MD Followup Plan Disposition: Home Follow-up plan 1. Followup with primary care provider in 3-4 days and to recheck INR and adjust Warfarin dose as needed. 2. Followup with oncology (Dr. Salinas) within one week. Call to verify exact date and appointment time. Discharge Diet: Low fat, Low Sodium, Heart Healthy Discharge Activity: No restrictions Patient Instructions Seek immediate medical attention if any new or worsening signs or symptoms occur. Follow-up Provider: Jennifer Mckinley MD Provider: Tan Salinas DO Time spent 40 min copies to: Tan Salinas DO; Jennifer Mckinley MD, [place] Sep 16, 2016 18:38
== END 2016-09-16 13:45 | disposition home or self-care (01) | DRG 840 ==
LOC: MPC 20:48
PROVIDERS: ADMIT Internal Medicine; ATTEND Internal Medicine
PROC: 30233N1 Transfusion of Nonautologous Red Blood Cells into Peripheral Vein, Percutaneous Approach (ICD-10-PCS; principal; 2016-09-14)
PROC: 30233N1 Transfusion of Nonautologous Red Blood Cells into Peripheral Vein, Percutaneous Approach (ICD-10-PCS; 2016-09-15)
DX: C92.Z0 Other myeloid leukemia not having achieved remission (principal); I50.21 Acute systolic (congestive) heart failure; J18.9 Pneumonia, unspecified organism; N17.9 Acute kidney failure, unspecified; D70.8 Other neutropenia; R50.81 Fever presenting with conditions classified elsewhere; Z79.01 Long term (current) use of anticoagulants; Z95.5 Presence of coronary angioplasty implant and graft; I48.91 Unspecified atrial fibrillation; D53.9 Nutritional anemia, unspecified; I10 Essential (primary) hypertension; E03.9 Hypothyroidism, unspecified; E87.6 Hypokalemia; I34.1 Nonrheumatic mitral (valve) prolapse; R79.1 Abnormal coagulation profile